=== PATIENT | female | born 2000 | race Caucasian/White ===

== ENCOUNTER 2023-03-18 15:47 | Emergency (ER) | payer BC, OTHER, SELFPAY ==
[2023-03-18 15:48] VITALS: BP 128/89; PULSE 74; RESP 16; TEMP 36.8; O2SAT 100; BMI 16.0
--- NOTE | 2023-03-18 16:02 | EDS_ITS ---
HPI HPI - Psych History of Present Illness Chief Complaint: Suicidal Detail of Chief Complaint: Suicidal thoughts Informant: patient Narrative Narrative: Patient presents with depression and thoughts of suicide. Patient was seen by primary care physician today and referred to the emergency department. Patient tells me that she has been depressed for the last month because of a break-up with significant other which was a relationship that lasted about 3 years. To me she denied currently feeling suicidal. Apparently she told her primary care physician that she has had thoughts of cutting or overdosing. To me she denied prior attempts to harm herself but PCP noted that she had prior attempt at hanging. Patient's grandmother was with her in the room when I interviewed the patient. She denies any illicit drug use but does use CBD to help her sleep at night. Patient tells me she is been compliant with her medications. Denies auditory or visual hallucinations. PFSH PFSH Medical History Anxiety Home Medications multivitamin 1 tab PO DAILY 05/17/20 [History Last Taken Unknown] lorazepam 0.5 mg tablet 0.5 mg PO DAILY PRN 07/25/21 [History Last Taken Unknown] desogestrel 0.15 mg-ethinyl estradiol 0.03 mg tablet (Apri) 1 tab PO QDAY #84 tabs 09/18/22 [Rx Last Taken Unknown] lamotrigine 25 mg tablet 25 mg PO DAILY 09/18/22 [History Last Taken Unknown] Allergy/AdvReac Type Severity Reaction Status Date / Time No Known Allergies Allergy Verified 09/18/22 15:44 Family History Grandmother Heart disease Social History current occupational status: employed current occupation: [employer] Smoking Status: Never smoker alcohol intake: never substance use type: does not use caffeine: Yes what type of physical activity do you participate in: none seatbelt use: always ROS ROS ED Review of Systems ROS Unobtainable: other Constitutional Constitutional ED: Reports lethargy; Denies chills, fever(s), sweats or weight loss Eyes Eyes: Denies blurry vision, change in vision or diplopia ENT ENT ED: Denies rhinorrhea or sore throat Cardiovascular Cardiovascular: Denies chest pain, orthopnea or racing heartbeat Respiratory/Chest Respiratory/Chest: Denies cough, dyspnea, dyspnea on exertion, orthopnea or sputum Gastrointestinal Gastrointestinal: Denies abdominal pain, diarrhea, nausea or vomiting Genitourinary Genitourinary ED: Denies dysuria, hematuria or urinary frequency Musculoskeletal Musculoskeletal: Denies arthralgias, back pain, myalgias or neck pain Integumentary Denies abscess, Abrasions or rash Neurologic Neurologic: Denies headache(s) or weakness Psychiatric Psychiatric: Reports anxiety, depression, suicidal ideation and suicidal thoughts Endocrine Endocrinology: Denies polydipsia, polyphagia or polyuria Hematologic/Lymphatic Hematologic/Lymphatic: Denies easy bleeding, easy bruising or lymphadenopathy Allergic/Immunologic Allergic/Immunologic ED: Denies mouth swelling, tongue swelling or urticaria EXAM Physical Exam Const Vital Signs: 03/18/23 15:48 03/18/23 17:00 03/18/23 18:00 Temperature 98.2 F Temperature Source Temporal Pulse Rate 74 Respiratory Rate 16 18 18 Blood Pressure 128/89 H Blood Pressure Mean 102 Pulse Ox 100 Oxygen Delivery Method Room Air 03/18/23 19:00 03/18/23 21:41 Temperature Temperature Source Pulse Rate Respiratory Rate 18 16 Blood Pressure Blood Pressure Mean Pulse Ox Oxygen Delivery Method Positive well nourished and well developed General Appearance ED: well developed and NAD HEENT Reports TM's clear and moist mucous membranes normocephalic and atraumatic; Negative for trauma or tenderness Tympanic Membrane ED: Yes TM's clear Eyes PERRL and EOMs intact bilaterally General Eye ED: Negative for pale conjunctiva or scleral icterus Neck no lymphadenopathy, supple and no JVD General: Negative for tenderness Chest Wall inspection of chest normal and palpation of chest normal Chest: Negative for tenderness Resp normal respiratory effort and clear to auscultation bilaterally Effort and Inspection: Negative for respiratory distress or pain with movement Auscultation: Negative for rhonchi, wheezes or diminished lung sounds Cardio regular rate, regular rhythm, S1 normal heart sound, S2 normal heart sound and no murmurs Peripheral Pulses: pulses 2+ throughout GI normal to inspection, nondistended, normoactive bowel sounds, soft to palpation, non-tender, non-distended and no masses Back/Spine no CVA tenderness and no thoracic nor lumbar tenderness Extremity normal to inspection General Extremety ED: Negative for edema General Extremity: Negative for edema Neuro oriented x3, CN's II-XII intact bilaterally, no sensory deficits noted and gait normal Sensorium / Orientation: awake, alert, oriented to person, oriented to place and oriented to time Motor Exam: strength 5/5 throughout and strength abnormal Psych mental status grossly normal Skin no rashes or lesions noted and no wounds MDM MDM MDM Narrative Medical decision making narrative: Patient presents from PCPs office to be evaluated by crisis. She is been depressed since ending a 3-year relationship 1 month ago. Patient was not forthcoming with me about plan to harm herself and prior attempts. Patient was seen by crisis and we believe she would benefit from inpatient hospitalization and stabilization as we feel she is a threat to herself. CBC with differential is normal. Chemistries unremarkable. Tox screen negative. hCG was negative. Patient will be transferred to psychiatric facility for definitive care. Lab Data Labs: Laboratory Results - last 24 hr 03/18/23 03/18/23 16:10 16:25 WBC 7.5 RBC 4.54 Hgb 14.4 Hct 43.5 MCV 95.8 MCH 31.7 MCHC 33.1 RDW Std Deviation 42.5 RDW Coeff of Otto 12.1 Plt Count 334 MPV 9.6 Immature Gran % (Auto) 0.300 Neut % (Auto) 54.2 Lymph % (Auto) 36.3 [place] % (Auto) 6.5 Eos % (Auto) 2.0 Baso % (Auto) 0.7 Absolute Neuts (auto) 4.1 Absolute Lymphs (auto) 2.72 Nucleated RBC % 0 Sodium 139 Potassium 4.0 Chloride 106 Carbon Dioxide 27.0 Anion Gap 6 BUN 14 Creatinine 0.94 Estim Creat Clear Calc 59.66 Est GFR (MDRD) Af Amer 96 Est GFR (MDRD) Non-Af 80 BUN/Creatinine Ratio 14.9 Glucose 98 Calcium 9.0 Serum , Qual NEGATIVE Urine Opiates Screen NEGATIVE Urine Methadone Screen NEGATIVE Ur Barbiturates Screen NEGATIVE Ur Phencyclidine Scrn NEGATIVE Ur Amphetamines Screen NEGATIVE MDMA (Ecstasy) Screen NEGATIVE U Benzodiazepines Scrn NEGATIVE Urine Cocaine Screen NEGATIVE U Cannabinoids Screen NEGATIVE Ur Drug Screen Comment Ethyl Alcohol < 3.0 Discharge Plan Triage Chief Complaint: Suicidal ED Provider: Doris Glover Dx/Rx/DC Orders Clinical Impression: Suicidal ideations, Depression Prescriptions: No Action multivitamin Tablet 1 tab PO DAILY lorazepam 0.5 mg tablet 0.5 mg PO DAILY PRN lamotrigine 25 mg tablet 25 mg PO DAILY Patient Comments: TAKE 1 TABLET BY MOUTH EVERY DAY desogestrel-ethinyl estradiol [Apri] 0.15-0.03 mg tablet 1 tab PO QDAY Qty: 84 4RF Primary Care Provider: Jacqueline Sagastume Referrals: Jacqueline Sagastume MD [Primary Care Provider] - Disposition Disposition: Psychiatric Hospital or Unit
[2023-03-18 16:51] LABS: Absolute Lymphocyte Count 2.72 X10^3/uL (0.83-4.51); Absolute Neutrophil Count 4.1 X10^3/uL (2.0-7.7); Basophil# 0.05 X10^3/uL; Basophil% 0.7 % (0-1); Eosinophil# 0.15 X10^3/uL; Hematocrit 43.5 % (37-47); Hemoglobin 14.4 g/dL (12.0-15.0); Lymphocyte # 2.72 X10^3/ul (0.83-4.51); Lymphocyte % 36.3 % (19-41); Mean Corp Hgb Conc 33.1 g/dL (32-36); Mean Corpuscular Hgb 31.7 pg (27.0-32.0); Mean Corpuscular Volume 95.8 fL (81-99); Mean Platelet Vol. 9.6 fl (6.2-12.0); Monocyte# 0.49 X10^3/uL; Monocyte% 6.5 % (0-10); NRBC Flagged by Analyzer 0 % (0-5); Neutrophil # 4.07 X10^3/uL (2.7-7.7); Neutrophil % 54.2 % (47-70); Platelet Count 334 K/mm3 (150-450); RBC Distribution Width CV 12.1 % (11.6-14.6); RBC Distribution Width SD 42.5 fl (35.1-43.9); Red Blood Count 4.54 M/mm3 (4.2-5.4); White Blood Count 7.5 K/mm3 (4.4-11.0)
[2023-03-18 16:53] LABS: Amphetamine Urine VISTA NEGATIVE (<1000 ng/mL); Barbiturate Urine VISTA NEGATIVE (< 200 ng/mL); Benzodiazepine Urine VISTA NEGATIVE (< 200 ng/mL); Cocaine Urine VISTA NEGATIVE (< 300 ng/mL); Ecstacy Urine VISTA NEGATIVE (< 500 ng/mL); Methadone Urine VISTA NEGATIVE (< 300 ng/mL); PCP Urine VISTA NEGATIVE (< 25 ng/mL); THC Urine VISTA NEGATIVE (< 50 ng/mL); Vista UDS pH Range 7
[2023-03-18 17:00] VITALS: RESP 18
[2023-03-18 17:03] LABS: Alcohol, Blood (Medical)-Serum < 3.0 mg/dL
[2023-03-18 17:06] LABS: Anion Gap 6 (5-15); BUN 14 mg/dL (7-18); BUN/Creat Ratio 14.9 RATIO (10-20); Chloride 106 mmol/L (98-107); Creatinine, Serum 0.94 mg/dL (0.55-1.02); EST Glomerular Filtration Rate 80 mL/min (>60); Est Glom Filt Rate - Afr Amer 96 mL/min (>60); Estimated Creatinine Clearance 59.66 ml/min; Glucose 98 mg/dL (74-106); Sodium Level 139 mmol/L (136-145)
[2023-03-18 17:13] LABS: Internal QC Validated? YES +Cl - CLEAR BKGD; Pregnancy, Serum, hCG Quali. NEGATIVE Negative
--- NOTE | 2023-03-18 17:27 | ED.RN ---
CHART FAXED TO CRISIS
[2023-03-18 18:00] VITALS: RESP 18
[2023-03-18 19:00] VITALS: RESP 18
[2023-03-18] MEDS: Acetaminophen 500 MG Tablet 1000 MG PO (21:39)
[2023-03-18 21:41] VITALS: RESP 16
[2023-03-18 23:59] VITALS: BP 98/73; PULSE 56; RESP 18; TEMP 36.6; O2SAT 100
== END 2023-03-19 03:47 ==
PROVIDERS: Emergency Provider Emergency Medicine; PCP Internal Medicine; Visit Provider Emergency Medicine
DX: R45.851 Suicidal ideations (principal); F32.A Depression, unspecified; F41.9 Anxiety disorder, unspecified
CPT/HCPCS: 36415; 80048; 80307; 82077; 84703; 85025; 99284

== ENCOUNTER 2023-04-04 06:20 | Emergency (ER) | payer BC, SELFPAY ==
[2023-04-04 06:21] VITALS: BP 111/71; PULSE 68; RESP 18; TEMP 36.7; O2SAT 100; BMI 17.6
--- NOTE | 2023-04-04 06:32 | EDS_ITS ---
HPI History of Present Illness Chief Complaint: Seizure Informant: patient Onset/Context/Timing Onset: Today Context: Sudden Onset Timing: Intermittent and Lasts (3 minutes) Location: Generalized Worsened by: Nothing Relieved by: Nothing Narrative Narrative: Patient present with seizure activity that occurred today while she was at work. Coworker states she had 3 separate seizures today at work. Coworker states they last approximately 3 minutes each. Coworker states she was able to stand after each seizure. Coworkers state they were generalized. Patient does not remember any of this. Patient denies biting her tongue. Patient denies any loss of control of her bowels or bladder. Patient has a history of anxiety and has had seizures in the past. Patient is on lamotrigine. [facility] Medical History Anxiety Bipolar 1 disorder Home Medications lorazepam 0.5 mg tablet 0.5 mg PO DAILY PRN anxiety 07/25/21 [History Last Taken Unknown] desogestrel 0.15 mg-ethinyl estradiol 0.03 mg tablet (Apri) 1 tab PO QDAY #84 tabs 09/18/22 [Rx Last Taken Unknown] lamotrigine 25 mg tablet 25 mg PO DAILY 09/18/22 [History Last Taken Unknown] sertraline 25 mg tablet (Zoloft) 25 mg PO DAILY 04/04/23 [History Last Taken Unknown] Allergy/AdvReac Type Severity Reaction Status Date / Time No Known Allergies Allergy Verified 04/04/23 06:25 Family History Grandmother Heart disease Social History current occupational status: employed current occupation: [employer] Smoking Status: Never smoker alcohol intake: never substance use type: does not use caffeine: Yes what type of physical activity do you participate in: none seatbelt use: always ROS ROS ED Constitutional Constitutional ED: Denies chills or fever(s) Eyes Eyes: Denies blurry vision or change in vision ENT ENT ED: Denies rhinorrhea or sore throat Cardiovascular Cardiovascular: Denies chest pain or palpitations Respiratory/Chest Respiratory/Chest: Denies cough or dyspnea Gastrointestinal Gastrointestinal: Denies nausea or vomiting Genitourinary Genitourinary ED: Denies dysuria or hematuria Musculoskeletal Musculoskeletal: Denies back pain or neck pain Integumentary Denies abscess or rash Neurologic Neurologic: Denies headache(s) or weakness Allergic/Immunologic Allergic/Immunologic ED: Denies mouth swelling or urticaria EXAM Physical Exam Const Vital Signs: 04/04/23 06:21 Temperature 98.0 F Temperature Source Temporal Pulse Rate 68 Respiratory Rate 18 Blood Pressure 111/71 Blood Pressure Mean 84 Pulse Ox 100 Oxygen Delivery Method Room Air Positive well nourished and well developed General Appearance ED: well developed and NAD HEENT Reports moist mucous membranes Neck supple and no JVD Resp normal respiratory effort and clear to auscultation bilaterally Cardio regular rate, regular rhythm and no murmurs GI normal to inspection, nondistended, normoactive bowel sounds and non-tender Palpation: soft Extremity normal to inspection General Extremety ED: Negative for edema or tenderness General Extremity: Negative for edema Neuro oriented x3, CN's II-XII intact bilaterally and no sensory deficits noted Sensorium / Orientation: alert Motor Exam: strength 5/5 throughout Psych mental status grossly normal Skin no rashes or lesions noted MDM MDM MDM Narrative Medical decision making narrative: Differential diagnosis includes seizure disorder, pseudoseizure, syncope, intracranial bleeding, mass, electrolyte abnormality, and cardiac dysrhythmia. EKG will be obtained to assess for cardiac dysrhythmia. CBC will be obtained to assess for leukocytosis and anemia. Basic metabolic profile will be obtained to assess for electrolyte abnormality and renal function. CT scan of the brain will be obtained to assess for intracranial bleeding or mass. Lab Data Attestation: I reviewed the patient's lab results. Lab results narrative: CBC was reviewed and was within normal limits. Basic metabolic profile was reviewed and was within normal limits. Serum hCG was reviewed and was negative. Labs: Laboratory Results - last 24 hr 04/04/23 04/04/23 06:30 07:05 WBC 8.2 RBC 4.45 Hgb 14.2 Hct 42.2 MCV 94.8 MCH 31.9 MCHC 33.6 RDW Std Deviation 42.6 RDW Coeff of Otto 12.2 Plt Count 316 MPV 9.4 Immature Gran % (Auto) 0.400 Neut % (Auto) 58.1 Lymph % (Auto) 31.3 [place] % (Auto) 6.9 Eos % (Auto) 2.7 Baso % (Auto) 0.6 Absolute Neuts (auto) 4.8 Absolute Lymphs (auto) 2.58 Nucleated RBC % 0 Sodium Cancelled 141 Potassium Cancelled 3.9 Chloride Cancelled 111 H Carbon Dioxide Cancelled 28.0 Anion Gap Cancelled 2 L BUN Cancelled 11 Creatinine Cancelled 0.78 Estim Creat Clear Calc Cancelled 78.89 Est GFR (MDRD) Af Amer Cancelled 120 Est GFR (MDRD) Non-Af Cancelled 99 BUN/Creatinine Ratio Cancelled 14.1 Glucose Cancelled 89 Calcium Cancelled 8.6 Serum , Qual NEGATIVE Radiography Diagnostic Testing: Clinical Impression(s) from Imaging Studies Brain CT 04/04/23 06:35 IMPRESSION: No acute abnormality. Electronically Signed: Waleska Stoddard MD at 7:05 EDT , CT scan of the brain was obtained. There is no acute intracranial abnormality. This was interpreted by the radiologist and was also independently reviewed by myself. EKG Initial EKG: Attestation: I personally reviewed and interpreted this EKG as follows: Interpretation: Sinus Rhythm (72) and No Acute Injury Pattern Comments: EKG was obtained. On my independent interpretation, it showed a normal sinus rhythm with a rate of 72. [place] interval, QRS interval, and QTc intervals were all normal. [place] was normal. There are no acute ST or T wave changes. Prior EKG tracings: not available for review Prior: No Prior Treatment and Re-Evaluation :: Seizure precautions were maintained. Patient had no further seizures here. Patient was advised of her findings. Patient was advised that we could not do a lamotrigine level. Patient was instructed to follow-up with her primary care physician and neurologist as scheduled. Patient was instructed return if worse in any way. Patient was given a note for work today. Patient understood and was agreeable with the plan. All questions were answered. Discharge Plan Triage Chief Complaint: Seizure ED Provider: Diaz Rivero Dx/Rx/DC Orders Clinical Impression: Seizure Instructions: ED Seizure, Recurrent (Adult) Prescriptions: No Action lorazepam 0.5 mg tablet 0.5 mg PO DAILY PRN (Reason: anxiety) lamotrigine 25 mg tablet 25 mg PO DAILY Patient Comments: TAKE 1 TABLET BY MOUTH EVERY DAY desogestrel-ethinyl estradiol [Apri] 0.15-0.03 mg tablet 1 tab PO QDAY Qty: 84 4RF sertraline [Zoloft] 25 mg tablet 25 mg PO DAILY Primary Care Provider: Jacqueline Sagastume Referrals: Jacqueline Sagastume MD [Primary Care Provider] - [facility] appointment Disposition Disposition: Home, Self Care
--- NOTE | 2023-04-04 06:35 | CT_ITS ---
INDICATION: Seizure EXAMINATION: CT BRAIN - CT Head or Brain W/O Contrast Injection TECHNIQUE: Multiple axial images were obtained of the head without intravenous contrast. A radiation dose optimization technique was used for this scan. IV Contrast dosage and agent: None. RADIATION DOSAGE (If Supplied By Facility): CTDIvol = ( 44.99 ) mGy, DLP = ( 711.75 ) mGycm COMPARISON: None. FINDINGS: BRAIN: No acute bleed. No edema. Kaplan-white matter differentiation is maintained. VENTRICLES AND SULCI: Not dilated. EXTRA-AXIAL: No hemorrhage, fluid collection, or mass. CALVARIUM / SKULL BASE: Unremarkable. FACE/SINUSES: Unremarkable. SOFT TISSUES: Unremarkable. CT/Brain/Head without Contrast IMPRESSION: No acute abnormality. Electronically Signed: Waleska Stoddard MD at 7:05 EDT ,
--- NOTE | 2023-04-04 06:36 | EKG12_ITS ---
Test Reason : SEIZERS Blood Pressure : / mmHG Vent. Rate : 072 BPM Atrial Rate : 072 BPM P-R Int : 130 ms QRS Dur : 082 ms QT Int : 392 ms P-R-T Axes : 056 075 041 degrees QTc Int : 429 ms Sinus rhythm with marked sinus arrhythmia Otherwise normal ECG Confirmed by DAVID YBARRA ([id number]), scientific editor VIJAY ZACARIAS ([id number]) on 04/18/2023 10:47:36 AM Referred By: Confirmed By:DAVID YBARRA
[2023-04-04] MEDS: 0.9% Normal Saline 1,000 ML 1000 ML IV (06:43)
--- NOTE | 2023-04-04 06:43 | NURSING ---
NO OLD EKGS
[2023-04-04 06:48] LABS: Absolute Lymphocyte Count 2.58 X10^3/uL (0.83-4.51); Absolute Neutrophil Count 4.8 X10^3/uL (2.0-7.7); Basophil# 0.05 X10^3/uL; Basophil% 0.6 % (0-1); Eosinophil# 0.22 X10^3/uL; Eosinophils% 2.7 % (0-5); Hematocrit 42.2 % (37-47); Hemoglobin 14.2 g/dL (12.0-15.0); Lymphocyte # 2.58 X10^3/ul (0.83-4.51); Lymphocyte % 31.3 % (19-41); Mean Corp Hgb Conc 33.6 g/dL (32-36); Mean Corpuscular Hgb 31.9 pg (27.0-32.0); Mean Corpuscular Volume 94.8 fL (81-99); Mean Platelet Vol. 9.4 fl (6.2-12.0); Monocyte# 0.57 X10^3/uL; Monocyte% 6.9 % (0-10); NRBC Flagged by Analyzer 0 % (0-5); Neutrophil # 4.79 X10^3/uL (2.7-7.7); Neutrophil % 58.1 % (47-70); Platelet Count 316 K/mm3 (150-450); RBC Distribution Width CV 12.2 % (11.6-14.6); RBC Distribution Width SD 42.6 fl (35.1-43.9); Red Blood Count 4.45 M/mm3 (4.2-5.4); White Blood Count 8.2 K/mm3 (4.4-11.0)
--- NOTE | 2023-04-04 07:00 | NURSING ---
[place] HEMOLIZED
[2023-04-04 07:14] LABS: Internal QC Validated? YES +Cl - CLEAR BKGD; Pregnancy, Serum, hCG Quali. NEGATIVE Negative
[2023-04-04 07:24] LABS: Anion Gap 2 (5-15); BUN 11 mg/dL (7-18); BUN/Creat Ratio 14.1 RATIO (10-20); Calcium,Total 8.6 mg/dL (8.5-10.1); Chloride 111 mmol/L (98-107); Creatinine, Serum 0.78 mg/dL (0.55-1.02); EST Glomerular Filtration Rate 99 mL/min (>60); Est Glom Filt Rate - Afr Amer 120 mL/min (>60); Estimated Creatinine Clearance 78.89 ml/min; Glucose 89 mg/dL (74-106); Potassium 3.9 mmol/L (3.5-5.1); Sodium Level 141 mmol/L (136-145)
[2023-04-04 07:45] VITALS: BP 100/68; PULSE 85; RESP 14; O2SAT 100
== END 2023-04-04 07:51 | disposition home or self-care (01) ==
PROVIDERS: Emergency Provider Emergency Medicine; PCP Internal Medicine; Visit Provider Emergency Medicine
DX: R56.9 Unspecified convulsions (principal); F31.9 Bipolar disorder, unspecified; F41.9 Anxiety disorder, unspecified; Z79.899 Other long term (current) drug therapy
CPT/HCPCS: 70450; 80048; 84703; 85025; 93005; 96360; 99285; J7030; A4216

== ENCOUNTER → 2023-10-23 | Outpatient (CLI) | payer BC, OTHER, SELFPAY ==
[2023-10-23 11:37] LABS: Absolute Lymphocyte Count 2.82 X10^3/uL (0.83-4.51); Absolute Neutrophil Count 3.5 X10^3/uL (2.0-7.7); Basophil# 0.04 X10^3/uL; Basophil% 0.6 % (0-1); Eosinophil# 0.16 X10^3/uL; Eosinophils% 2.3 % (0-5); Hematocrit 42.9 % (37-47); Hemoglobin 14.3 g/dL (12.0-15.0); Lymphocyte # 2.82 X10^3/ul (0.83-4.51); Lymphocyte % 39.9 % (19-41); Mean Corp Hgb Conc 33.3 g/dL (32-36); Mean Corpuscular Volume 92.9 fL (81-99); Mean Platelet Vol. 9.9 fl (6.2-12.0); Monocyte# 0.52 X10^3/uL; Monocyte% 7.4 % (0-10); NRBC Flagged by Analyzer 0 % (0-5); Neutrophil # 3.52 X10^3/uL (2.7-7.7); Neutrophil % 49.7 % (47-70); Platelet Count 317 K/mm3 (150-450); RBC Distribution Width CV 12.2 % (11.6-14.6); RBC Distribution Width SD 41.8 fl (35.1-43.9); Red Blood Count 4.62 M/mm3 (4.2-5.4); White Blood Count 7.1 K/mm3 (4.4-11.0)
[2023-10-23 12:15] LABS: Vitamin D,25 Hydroxy 14.4 ng/mL
[2023-10-23 12:31] LABS: AST(SGOT) 16 U/L (15-37); Alanine Aminotransfer ALT/SGPT 14 U/L (13-56); Albumin, Serum 4.3 g/dL (3.2-5.0); Alkaline Phosphatase 66 U/L (45-117); Bilirubin, Direct 0.18 mg/dL (0.00-0.30); Free T3 3.1 pg/mL (2.18-3.98); Globulin 3.1 g/dL (2.2-4.2); Protein, Total 7.4 g/dL (6.4-8.2); T4 Free Direct 0.93 ng/dL (0.76-1.46); Thyroid Stim Hormone (TSH) 1.02 uIU/mL (0.358-3.74)
== END | disposition home or self-care (01) ==
PROVIDERS: PCP Nurse Practitioner; Referring Provider Nurse Practitioner Psychiatric/Mental Health; Visit Provider Nurse Practitioner Psychiatric/Mental Health
DX: Z00.00 Encounter for general adult medical examination without abnormal findings (principal); E55.9 Vitamin D deficiency, unspecified
CPT/HCPCS: 36415; 80076; 82306; 84439; 84443; 84481; 85025

== ENCOUNTER 2024-05-15 13:47 | Emergency (ER) | payer BC, OTHER, SELFPAY ==
[2024-05-15 13:50] VITALS: BP 121/88; PULSE 81; RESP 16; TEMP 36.8; O2SAT 100
--- NOTE | 2024-05-15 14:58 | EX.ED.DYSGE1 ---
HPI History of Present Illness Chief Complaint: Anxiety Detail of Chief Complaint: Near syncope Informant: patient Narrative Narrative: Patient presents to the emergency department with complaint of a near syncopal episode. Patient states that she was at work was there standing talking to somebody when she started feeling like her heart was racing and she felt very hot. She states she got numb and tingly all over and went to find her boss. Next thing she knew they were lowering her to the floor. It is unclear if she passed out or not. Grandmother states that she works at the same place and came over to check on her and she was tense and had her eyes closed. Patient had similar episodes in the past she had a similar episode 3 days ago but did not last very long. Still feels a little jittery. She does have history of anxiety and takes Zoloft. Currently she is feeling improved. She denies recent illness. She denies chest pain or shortness of breath. [facility] Medical History Anxiety Bipolar 1 disorder Home Medications ?Medication ?Instructions ?Recorded ?Last Taken ?Type lorazepam 0.5 mg tablet 0.5 mg PO DAILY PRN anxiety 07/25/21 Unknown History desogestrel 0.15 mg-ethinyl 1 tab PO QDAY #84 tabs 09/18/22 Unknown Rx estradiol 0.03 mg tablet (Apri) lamotrigine 25 mg tablet 25 mg PO DAILY 09/18/22 Unknown History sertraline 25 mg tablet (Zoloft) 25 mg PO DAILY 04/04/23 Unknown History Allergy/AdvReac Type Severity Reaction Status Date / Time No Known Allergies Allergy Verified 05/15/24 13:52 Family History Grandmother Heart disease Social History current occupational status: employed current occupation: [employer] Smoking Status: Never smoker alcohol intake: never substance use type: does not use caffeine: Yes what type of physical activity do you participate in: none seatbelt use: always ROS ROS ED Review of Systems ROS Unobtainable: other Constitutional Constitutional ED: Reports lethargy; Denies chills, fever(s), sweats or weight loss Eyes Eyes: Denies blurry vision, change in vision or diplopia ENT ENT ED: Denies rhinorrhea or sore throat Cardiovascular Cardiovascular: Reports racing heartbeat; Denies chest pain or orthopnea Respiratory/Chest Respiratory/Chest: Denies cough, dyspnea, dyspnea on exertion, orthopnea or sputum Gastrointestinal Gastrointestinal: Denies abdominal pain, diarrhea, nausea or vomiting Genitourinary Genitourinary ED: Denies dysuria, hematuria or urinary frequency Musculoskeletal Musculoskeletal: Denies arthralgias, back pain, myalgias or neck pain Integumentary Denies abscess, Abrasions or rash Neurologic Neurologic: Denies headache(s) or weakness Psychiatric Psychiatric: Denies anxiety, depression or suicidal thoughts Endocrine Endocrinology: Denies polydipsia, polyphagia or polyuria Hematologic/Lymphatic Hematologic/Lymphatic: Denies easy bleeding, easy bruising or lymphadenopathy Allergic/Immunologic Allergic/Immunologic ED: Denies mouth swelling, tongue swelling or urticaria EXAM Physical Exam Const Vital Signs: 05/15/24 13:50 Temperature 98.2 F Temperature Source Temporal Pulse Rate 81 Respiratory Rate 16 Blood Pressure 121/88 H Blood Pressure Mean 99 Pulse Ox 100 Oxygen Delivery Method Room Air Positive well nourished and well developed General Appearance ED: well developed and NAD HEENT Reports TM's clear and moist mucous membranes normocephalic and atraumatic; Negative for trauma or tenderness Tympanic Membrane ED: Yes TM's clear Eyes PERRL and EOMs intact bilaterally General Eye ED: Negative for pale conjunctiva or scleral icterus Neck no lymphadenopathy, supple and no JVD General: Negative for tenderness Chest Wall inspection of chest normal and palpation of chest normal Chest: Negative for tenderness Resp normal respiratory effort and clear to auscultation bilaterally Effort and Inspection: Negative for respiratory distress or pain with movement Auscultation: Negative for rhonchi, wheezes or diminished lung sounds Cardio regular rate, regular rhythm, S1 normal heart sound, S2 normal heart sound and no murmurs Peripheral Pulses: pulses 2+ throughout GI normal to inspection, nondistended, normoactive bowel sounds, soft to palpation, non-tender, non-distended and no masses Back/Spine no CVA tenderness and no thoracic nor lumbar tenderness Extremity normal to inspection General Extremety ED: Negative for edema General Extremity: Negative for edema Neuro oriented x3, CN's II-XII intact bilaterally, no sensory deficits noted and gait normal Sensorium / Orientation: awake, alert, oriented to person, oriented to place and oriented to time Motor Exam: strength 5/5 throughout and strength abnormal Psych mental status grossly normal Skin no rashes or lesions noted and no wounds MDM MDM MDM Narrative Medical decision making narrative: Patient presents with episode of racing heart and lightheadedness and nausea and then possible near syncope. She has had multiple episodes like this in the past. This is the second 1 this week. She denies chest pain. She tells me that her watch showed a heart rate in the 140s at the time. Patient also tells me that years ago she wore a Holter monitor for 48 hours and no abnormality was found. IV line established. EKG obtained on arrival showed a sinus rhythm with ventricular rate of 68 bpm with PACs. CBC with differential count of 13.8 with hemoglobin 13.4 and platelet count of 304. Chemistries unremarkable. hCG was negative. Patient was given a milligram of Ativan in the emergency department. On repeat examination she is feeling well. This point etiology of her symptoms unclear. Suspect possibly vasovagal episode versus anxiety attack as she did complain of numbness and tingling in her fingers as well and she has known history of anxiety. Will give referral to cardiology for follow-up as she described tachycardia with rate in the 140s though suspect this could have been a sinus tachycardia. Lab Data Attestation: I reviewed the patient's lab results. Labs: Laboratory Results - last 24 hr 05/15/24 15:13 WBC 13.8 H RBC 4.36 Hgb 13.4 Hct 40.9 MCV 93.8 MCH 30.7 MCHC 32.8 RDW Std Deviation 41.4 RDW Coeff of Otto 11.9 Plt Count 304 MPV 9.8 Immature Gran % (Auto) 0.400 Neut % (Auto) 70.9 H Lymph % (Auto) 20.9 [place] % (Auto) 6.2 Eos % (Auto) 1.2 Baso % (Auto) 0.4 Absolute Neuts (auto) 9.8 H Absolute Lymphs (auto) 2.88 Nucleated RBC % 0 Sodium 141 Potassium 3.6 Chloride 110 H Carbon Dioxide 27.0 Anion Gap 4 L BUN 14 Creatinine 1.03 H Est GFR (MDRD) Af Amer 86 Est GFR (MDRD) Non-Af 71 BUN/Creatinine Ratio 13.6 Glucose 92 Calcium 9.7 Serum , Qual NEGATIVE EKG Initial EKG: Attestation: I personally reviewed and interpreted this EKG as follows: Comments: Sinus rhythm with rate of 68 bpm with occasional PACs Discharge Plan Triage Chief Complaint: Anxiety ED Provider: Doris Glover Dx/Rx/DC Orders Clinical Impression: Anxiety, Near syncope, Dizziness Instructions: ED Anxiety Reaction, ED Dizziness, Uncertain Cause, ED Fainting, Vagal Reaction Prescriptions: No Action lorazepam 0.5 mg tablet 0.5 mg PO DAILY PRN (Reason: anxiety) lamotrigine 25 mg tablet 25 mg PO DAILY Patient Comments: TAKE 1 TABLET BY MOUTH EVERY DAY desogestrel-ethinyl estradiol [Apri] 0.15-0.03 mg tablet 1 tab PO QDAY Qty: 84 4RF sertraline [Zoloft] 25 mg tablet 25 mg PO DAILY Primary Care Provider: Care Physician,No Primary Referrals: Tricia Wilkes MD [Med Staff - Active Staff] - 3-5 Days Care Physician,No Primary [Primary Care Provider] - Print Language: Indonesian Disposition Disposition: Home, Self Care
[2024-05-15 15:29] LABS: Absolute Lymphocyte Count 2.88 X10^3/uL (0.83-4.51); Absolute Neutrophil Count 9.8 X10^3/uL (2.0-7.7); Basophil# 0.06 X10^3/uL; Basophil% 0.4 % (0-1); Eosinophil# 0.16 X10^3/uL; Eosinophils% 1.2 % (0-5); Hematocrit 40.9 % (37-47); Hemoglobin 13.4 g/dL (12.0-15.0); Lymphocyte # 2.88 X10^3/ul (0.83-4.51); Lymphocyte % 20.9 % (19-41); Mean Corp Hgb Conc 32.8 g/dL (32-36); Mean Corpuscular Hgb 30.7 pg (27.0-32.0); Mean Corpuscular Volume 93.8 fL (81-99); Mean Platelet Vol. 9.8 fl (6.2-12.0); Monocyte# 0.85 X10^3/uL; Monocyte% 6.2 % (0-10); NRBC Flagged by Analyzer 0 % (0-5); Neutrophil # 9.78 X10^3/uL (2.7-7.7); Neutrophil % 70.9 % (47-70); Platelet Count 304 K/mm3 (150-450); RBC Distribution Width CV 11.9 % (11.6-14.6); RBC Distribution Width SD 41.4 fl (35.1-43.9); Red Blood Count 4.36 M/mm3 (4.2-5.4); White Blood Count 13.8 K/mm3 (4.4-11.0)
[2024-05-15 15:46] LABS: Anion Gap 4 (5-15); BUN 14 mg/dL (7-18); BUN/Creat Ratio 13.6 RATIO (10-20); Calcium,Total 9.7 mg/dL (8.5-10.1); Chloride 110 mmol/L (98-107); Creatinine, Serum 1.03 mg/dL (0.55-1.02); EST Glomerular Filtration Rate 71 mL/min (>60); Est Glom Filt Rate - Afr Amer 86 mL/min (>60); Glucose 92 mg/dL (74-106); Potassium 3.6 mmol/L (3.5-5.1); Sodium Level 141 mmol/L (136-145)
[2024-05-15] MEDS: LORazepam 2 MG/ML Syringe 1 MG IV (15:52)
[2024-05-15 16:12] LABS: Internal QC Validated? YES +Cl - CLEAR BKGD; Pregnancy, Serum, hCG Quali. NEGATIVE Negative
== END 2024-05-15 17:05 | disposition home or self-care (01) ==
PROVIDERS: Emergency Provider Emergency Medicine; Visit Provider Emergency Medicine
DX: F41.9 Anxiety disorder, unspecified (principal); F31.9 Bipolar disorder, unspecified; R55 Syncope and collapse; R11.0 Nausea; Z79.899 Other long term (current) drug therapy
CPT/HCPCS: 80048; 84703; 85025; 93005; 96374; 99283; A4216

== ENCOUNTER 2024-07-15 08:41 | Emergency (ER) | payer BC, OTHER, SELFPAY ==
[2024-07-15 08:42] VITALS: BP 210/199; PULSE 58; RESP 16; TEMP 36.9; O2SAT 100
--- NOTE | 2024-07-15 08:55 | EDS_ITS ---
HPI History of Present Illness Chief Complaint: Syncope Narrative Narrative: Chief complaint and HPI: Syncope. 23-year-old female with past medical history of anxiety presents for evaluation of syncope. History taken by patient as well as medical record. Per patient and mother patient has had recurrent syncopal episodes since she was in her teenage years. She had a follow-up with neurology years ago and had negative EGD. Mother states that her daughter has continued to have syncope. On chart review, patient had a syncopal episode and was seen in our emergency room on 05/15/2024. Patient was ultimately discharged with referral to cardiology. Patient states that she has a cardiology appointment scheduled in August. She states that she has not followed up with the PCP for this and currently does not have one. She is not on any of her antianxiety medication. Patient states that her syncopal episodes are all very similar. She states that she gets the same prodrome of symptoms and sits down so she does not fall. Today patient was working when she felt warm, vision darkening, and palpitations. She states she sat down and had a reported unresponsive episode by coworkers. Mother states the patient occasionally stiffens or shakes her arms. She has not had loss of bowel or bladder. Has not bit her tongue. No postictal phase. Patient is very tearful and anxious in the room. She last ate yesterday evening. She denies any fever, chills, shortness of breath, chest pain abdominal pain, nausea, vomiting, dysuria. Denies possibility of although she is sexually active and not on control her last menstrual cycle was last week. Review of systems: See HPI Medications: As listed on the chart Allergies: As listed on the chart PFSH: Per chart Vital signs: As listed on the chart. Reviewed. Physical exam: Gen: A&O x3, anxious and shaking from nerves, tearful Head: Normocephalic, atraumatic Eyes: No sclera icterus, conjunctiva clear, PERRL, EOMI ENT: Moist mucous membranes Neck: Trachea midline, No JVD CV: RRR, no murmurs, no peripheral edema Resp: Lungs CTA BL, no w/r/c GI: Abd soft, non-distended, non-tender, no r/r/g Musc: Full ROM, no deformity Skin: Warm, dry Neuro: Alert, oriented, grossly intact, sensation intact Psych: Cooperative, tearful and anxious [facility] Medical History (Updated 07/15/24 @ 11:[address] Jamal Kohler, DO) Near syncope Panic attacks Vitamin B12 deficiency Vitamin D deficiency Renal tubular acidosis Dysphonetic dyslexia Bipolar 1 disorder Anxiety Home Medications ?Medication ?Instructions ?Recorded ?Last Taken ?Type lorazepam 0.5 mg tablet 0.5 mg PO DAILY PRN anxiety 07/25/21 Unknown History desogestrel 0.15 mg-ethinyl 1 tab PO QDAY #84 tabs 09/18/22 Unknown Rx estradiol 0.03 mg tablet (Apri) lamotrigine 25 mg tablet 25 mg PO DAILY 09/18/22 Unknown History sertraline 25 mg tablet (Zoloft) 25 mg PO DAILY 04/04/23 Unknown History ergocalciferol (vitamin D2) 1,250 1,250 mcg PO QWEEK 07/09/24 Unknown History mcg (50,000 unit) capsule cephalexin 500 mg capsule 500 mg PO BID 5 days #10 caps 07/15/24 Unknown Rx Allergy/AdvReac Type Severity Reaction Status Date / Time No Known Allergies Allergy Verified 05/15/24 13:52 Family History (Updated 07/09/24 @ 08:27 by Carin Schilling RN) Grandmother Heart disease Hypertension Vascular dementia Father Asthma Aunt Thyroid disorder Surgical History (Updated 07/09/24 @ 08:26 by Carin Schilling RN) No history of previous surgery Social History current occupational status: employed current occupation: [employer] Smoking Status: Never smoker alcohol intake: never substance use type: does not use caffeine: Yes what type of physical activity do you participate in: none seatbelt use: always EXAM Physical Exam Const Vital Signs: 07/15/24 08:42 07/15/24 09:43 07/15/24 10:54 Temperature 98.4 F Temperature Source Temporal Pulse Rate 58 L Respiratory Rate 16 Respiratory Effort Normal Non-Labored Respiratory Pattern Normal Blood Pressure 210/199 H 101/68 Blood Pressure Mean 202 79 Pulse Ox 100 100 Oxygen Delivery Method Room Air Room Air 07/15/24 12:33 07/15/24 12:58 Temperature 97.9 F Temperature Source Pulse Rate 72 63 Respiratory Rate 16 18 Respiratory Effort Respiratory Pattern Blood Pressure 100/77 109/67 Blood Pressure Mean 84 81 Pulse Ox 100 99 Oxygen Delivery Method Room Air MDM MDM MDM Narrative Medical decision making narrative: 23-year-old female with past medical history of anxiety presents for evaluation of syncope. Differential diagnosis includes but is not limited to panic attack, vasovagal episode, electrolyte abnormality, anemia, arrhythmia, . Low suspicion for PE, intracranial abnormality, seizure. Patient states that her syncopal episodes have been more recurrent over the past several months. Has not followed up for these. On chart review, patient did have a CT head in 2022. Given that patient endorses increase in syncope will get CT head and syncope workup. Patient was offered antianxiety medication but declined. NS bolus ordered. Syncope workup ordered. EKG and chest x-ray reviewed. CBC without leukocytosis or anemia. D-dimer unremarkable. BMP unremarkable. Lactic acid unremarkable. UA to expect this to be elevated if patient had a seizure. Troponin unremarkable. UA positive for UTI. Urine culture sent. Patient will be prescribed Keflex for home. Urine drug screen negative. CT head without any acute intracranial pathology. On reexamination, patient has ambulated to the bathroom without any difficulty. No syncope. Currently asymptomatic. At this point in time no clear etiology for patient's syncope. Will place patient on a 48-hour Holter monitor. She already has follow-up with cardiology in a week. Patient was told to keep this appointment. Return precautions explained. F ollow-up with PCP. They confirmed understand the plan. Patient stable to discharge home. EKG: Interpreted by me/EM physician: EKG shows normal sinus rhythm with periodic sinus arrhythmia. Heart rate 60. This is similar to her previous EKG on 05/18 Diagnostic: Interpreted by me/EM physician: Chest x-ray without pneumonia, effusion, cardiomegaly, pneumothorax Impression: 1. Recurrent syncope 2. UTI Lab Data Labs: Laboratory Results - last 24 hr 07/15/24 07/15/24 09:25 09:29 WBC 5.8 RBC 4.32 Hgb 13.1 Hct 40.3 MCV 93.3 MCH 30.3 MCHC 32.5 RDW Std Deviation 40.3 RDW Coeff of Otto 11.7 Plt Count 290 MPV 9.6 Immature Gran % (Auto) 0.200 Neut % (Auto) 48.7 Lymph % (Auto) 41.8 H Pierce % (Auto) 6.0 Eos % (Auto) 2.6 Baso % (Auto) 0.7 Absolute Neuts (auto) 2.8 Absolute Lymphs (auto) 2.43 Nucleated RBC % 0 D-Dimer Quant (PE/DVT) 0.27 Sodium 141 Potassium 4.0 Chloride 110 H Carbon Dioxide 26.0 Anion Gap 4 L BUN 10 Creatinine 0.72 Est GFR (MDRD) Af Amer 130 Est GFR (MDRD) Non-Af 108 BUN/Creatinine Ratio 13.9 Glucose 100 Lactic Acid 1.7 Calcium 9.5 Troponin I High Sens 4 Urine Color Yellow Urine Clarity Sl. Cloudy Urine pH 5.0 Ur Specific [place] 1.020 Urine Protein 15 H Urine Glucose (UA) Normal Urine Ketones Negative Urine Occult Blood Negative Urine Nitrite Negative Urine Bilirubin Negative Urine Urobilinogen Normal Ur Leukocyte Esterase 500 H Urine RBC 0 SEEN Urine WBC 10-25 SEEN Ur Squamous Epith Cells 5-10 SEEN Urine Bacteria 4+ Urine Mucus 0 SEEN Urine Test Negative Urine Opiates Screen NEGATIVE Urine Methadone Screen NEGATIVE Ur Barbiturates Screen NEGATIVE Ur Phencyclidine Scrn NEGATIVE Ur Amphetamines Screen NEGATIVE MDMA (Ecstasy) Screen NEGATIVE U Benzodiazepines Scrn NEGATIVE Urine Cocaine Screen NEGATIVE U Cannabinoids Screen NEGATIVE Ur Drug Screen Comment Radiography Diagnostic Testing: Clinical Impression(s) from Imaging Studies Chest X-Ray 07/15/24 09:50 IMPRESSION: Normal x-ray examination of the chest. Electronically Signed: Cuauhtemoc Reyes MD at 10:04 EST , Brain CT 07/15/24 10:10 IMPRESSION: Normal unenhanced CT scan of the brain. Electronically Signed: Cuauhtemoc Reyes MD at 10:22 EST , Discharge Plan Triage Chief Complaint: Syncope ED Provider: Jamal Kohler Dx/Rx/DC Orders Clinical Impression: Syncope, UTI (urinary tract infection) Instructions: Urinary Tract Infections in Women, ED Fainting, Uncertain Cause Prescriptions: New cephalexin 500 mg capsule 500 mg PO BID 5 Days Qty: 10 0RF No Action lorazepam 0.5 mg tablet 0.5 mg PO DAILY PRN (Reason: anxiety) lamotrigine 25 mg tablet 25 mg PO DAILY Patient Comments: TAKE 1 TABLET BY MOUTH EVERY DAY desogestrel-ethinyl estradiol [Apri] 0.15-0.03 mg tablet 1 tab PO QDAY Qty: 84 4RF ergocalciferol (vitamin D2) 1,250 mcg (50,000 unit) capsule 1,250 mcg PO QWEEK sertraline [Zoloft] 25 mg tablet 25 mg PO DAILY Stand Alone Forms: Work Status Form Primary Care Provider: Care Physician,No Primary Referrals: Cachorro Archuleta MD [Med Staff - Active Staff] - 3-5 Days Rolly Galo MD [Med Staff - Active Staff] - 3-5 Days Care Physician,No Primary [Primary Care Provider] - Activity Restrictions/Additional Instructions: Follow-up with primary care physician listed above. Keep your cardiology appointment. Return back to the ED if symptoms change or worsen. Wear your Holter monitor at all times. Print Language: Urdu Disposition Disposition: Home, Self Care Discharge Date/Time: 07/15/24 13:00
--- NOTE | 2024-07-15 08:58 | EKG12_ITS ---
Test Reason : SYNCOPE Blood Pressure : */* mmHG Vent. Rate : 60 BPM Atrial Rate : 60 BPM P-R Int : 116 ms QRS Dur : 72 ms QT Int : 406 ms P-R-T Axes : 32 74 47 degrees QTcB Int : 406 ms Normal sinus rhythm with sinus arrhythmia Normal ECG Confirmed by JOHANNA LAMB, TOBIN ([id number]), research editor TONY AMES ([id number]) on 07/22/2024 1:44:25 P M Referred By: Jamal Kohler Confirmed By: TOBIN SPENCER MD
[2024-07-15 09:33] LABS: Absolute Lymphocyte Count 2.43 X10^3/uL (0.83-4.51); Absolute Neutrophil Count 2.8 X10^3/uL (2.0-7.7); Basophil# 0.04 X10^3/uL; Basophil% 0.7 % (0-1); Eosinophil# 0.15 X10^3/uL; Eosinophils% 2.6 % (0-5); Hematocrit 40.3 % (37-47); Hemoglobin 13.1 g/dL (12.0-15.0); Lymphocyte # 2.43 X10^3/ul (0.83-4.51); Lymphocyte % 41.8 % (19-41); Mean Corp Hgb Conc 32.5 g/dL (32-36); Mean Corpuscular Hgb 30.3 pg (27.0-32.0); Mean Corpuscular Volume 93.3 fL (81-99); Mean Platelet Vol. 9.6 fl (6.2-12.0); Monocyte# 0.35 X10^3/uL; NRBC Flagged by Analyzer 0 % (0-5); Neutrophil # 2.84 X10^3/uL (2.7-7.7); Neutrophil % 48.7 % (47-70); Platelet Count 290 K/mm3 (150-450); RBC Distribution Width CV 11.7 % (11.6-14.6); RBC Distribution Width SD 40.3 fl (35.1-43.9); Red Blood Count 4.32 M/mm3 (4.2-5.4); White Blood Count 5.8 K/mm3 (4.4-11.0)
[2024-07-15 09:36] LABS: Mucous, Urine 0 SEEN /hpf (<or=2+); Red Blood Cells-Urine 0 SEEN /hpf (0-5)
[2024-07-15 09:44] LABS: Color, Urine Yellow (Yellow); Glucose, Dipstick Normal (Normal); Ketone-Dipstick Negative (Negative); Leukocyte Esterase-Dipstick 500 /ul (Negative); Nitrite-Dipstick Negative (Negative); Occult Blood-Urine Negative /ul (Negative); Protein-Dipstick 15 mg/dl (Negative); Urine Bilirubin Dipstick Negative (Negative); Urine Clarity Sl. Cloudy (Clear); Urine Urobilinogen Normal (Normal)
[2024-07-15 09:50] LABS: Internal QC Validated? YES +Cl - CLEAR BKGD; Pregnancy, Urine Negative Negative; Record Kit Lot#,Urine Preg 872158
--- NOTE | 2024-07-15 09:50 | RAD_ITS ---
STUDY: X-RAY CHEST REASON FOR EXAM: Female, 23 years old. Syncope TECHNIQUE: Single AP portable view of the chest. COMPARISON: None. FINDINGS: The lungs are clear and expanded. There is no demonstrated pleural abnormality. Normal size heart. Normal mediastinum and donna. Normal visualized pulmonary arteries. Normal visualized aortic arch and descending thoracic aorta. Normal visualized thoracic spine. Normal visualized ribs, clavicles, and shoulders. There is no demonstrated abnormality of the visualized soft tissue structures of the upper abdomen. RAD/Chest 1 View (Portable) IMPRESSION: Normal x-ray examination of the chest. Electronically Signed: Cuauhtemoc Reyes MD at 10:04 [facility] ,
[2024-07-15 09:53] LABS: Squamous Epithelial Cells - UA 5-10 SEEN /hpf (5-10); White Blood Cells 10-25 SEEN /hpf (0-5)
[2024-07-15 09:54] LABS: Bacteria 4+ /hpf (None Seen)
[2024-07-15 10:07] LABS: D-Dimer Quantitative (DVT/PE) 0.27 FEU/ug/m (0.27-0.49)
--- NOTE | 2024-07-15 10:10 | CT_ITS ---
STUDY: CT BRAIN WITHOUT CONTRAST REASON FOR EXAM: Female, 23 years old. Recurrent syncope RADIATION DOSAGE (If Supplied By Facility): CTDIvol = ( 44.99 ) mGy, DLP = ( 745.49 ) mGycm TECHNIQUE: Transaxial CT imaging of the brain was performed without administration of intravenous contrast material. Individualized dose optimization techniques were used for this CT. COMPARISON: Comparison is made with prior study dated April 04, 2023. FINDINGS: Normal soft tissue structures. Normal calvarium. Normal size ventricles and extra-axial spaces for the patient''s age. Normal white matter tracts of the cerebral hemispheres. Normal basal ganglia and thalami. Normal brainstem. Normal cerebellum. There is no intracranial hemorrhage. There are no findings of an acute ischemic infarction. Normal visualized paranasal sinuses. CT/Brain/Head without Contrast IMPRESSION: Normal unenhanced CT scan of the brain. Electronically Signed: Cuauhtemoc Reyes MD at 10:22 EST ,
[2024-07-15 10:11] LABS: Anion Gap 4 (5-15); BUN 10 mg/dL (7-18); BUN/Creat Ratio 13.9 RATIO (10-20); Calcium,Total 9.5 mg/dL (8.5-10.1); Chloride 110 mmol/L (98-107); Creatinine, Serum 0.72 mg/dL (0.55-1.02); EST Glomerular Filtration Rate 108 mL/min (>60); Est Glom Filt Rate - Afr Amer 130 mL/min (>60); Glucose 100 mg/dL (74-106); Sodium Level 141 mmol/L (136-145); Troponin-I HS 4 pg/mL (3.0-54.0)
[2024-07-15 10:20] LABS: Lactic Acid 1.7 mmol/L (0.4-1.9)
[2024-07-15 10:54] VITALS: BP 101/68; O2SAT 100
[2024-07-15 11:27] LABS: Amphetamine Urine VISTA NEGATIVE (<1000 ng/mL); Barbiturate Urine VISTA NEGATIVE (< 200 ng/mL); Benzodiazepine Urine VISTA NEGATIVE (< 200 ng/mL); Cocaine Urine VISTA NEGATIVE (< 300 ng/mL); Ecstacy Urine VISTA NEGATIVE (< 500 ng/mL); Methadone Urine VISTA NEGATIVE (< 300 ng/mL); PCP Urine VISTA NEGATIVE (< 25 ng/mL); THC Urine VISTA NEGATIVE (< 50 ng/mL); Vista UDS pH Range 4
[2024-07-15 12:33] VITALS: BP 100/77; PULSE 72; RESP 16; O2SAT 100
[2024-07-15 12:58] VITALS: BP 109/67; PULSE 63; RESP 18; TEMP 36.6; O2SAT 99
== END 2024-07-15 13:00 | disposition home or self-care (01) ==
PROVIDERS: Emergency Provider Surgery; Referring Provider Surgery; Visit Provider Surgery
DX: R55 Syncope and collapse (principal); N39.0 Urinary tract infection, site not specified; F41.9 Anxiety disorder, unspecified
CPT/HCPCS: 70450; 71045; 80048; 80307; 81001; 81025; 83605; 84484; 85025; 85379; 87086; 93005; 93225; 93226; 99284; A4216

== ENCOUNTER → 2024-07-15 | Outpatient (CLI) | payer BC, OTHER, SELFPAY | END | disposition home or self-care (01) | LOC: CVS 11:54 | PROVIDERS: Referring Provider Surgery; Visit Provider Surgery | DX: Z00.00 Encounter for general adult medical examination without abnormal findings (principal) ==

== ENCOUNTER → 2024-08-21 | Outpatient (CLI) | payer BC, OTHER, SELFPAY ==
[2024-08-21 17:38] LABS: Absolute Lymphocyte Count 2.88 X10^3/uL (0.83-4.51); Absolute Neutrophil Count 5.6 X10^3/uL (2.0-7.7); Basophil# 0.06 X10^3/uL; Basophil% 0.7 % (0-1); Eosinophil# 0.12 X10^3/uL; Eosinophils% 1.3 % (0-5); Hematocrit 39.9 % (37-47); Hemoglobin 13.4 g/dL (12.0-15.0); Lymphocyte # 2.88 X10^3/ul (0.83-4.51); Lymphocyte % 31.2 % (19-41); Mean Corp Hgb Conc 33.6 g/dL (32-36); Mean Corpuscular Hgb 30.9 pg (27.0-32.0); Mean Corpuscular Volume 91.9 fL (81-99); Mean Platelet Vol. 10.1 fl (6.2-12.0); Monocyte# 0.57 X10^3/uL; Monocyte% 6.2 % (0-10); NRBC Flagged by Analyzer 0 % (0-5); Neutrophil # 5.58 X10^3/uL (2.7-7.7); Neutrophil % 60.4 % (47-70); Platelet Count 338 K/mm3 (150-450); RBC Distribution Width CV 11.9 % (11.6-14.6); RBC Distribution Width SD 40.1 fl (35.1-43.9); Red Blood Count 4.34 M/mm3 (4.2-5.4); White Blood Count 9.2 K/mm3 (4.4-11.0)
[2024-08-21 17:54] LABS: Vitamin D,25 Hydroxy 27.6 ng/mL
[2024-08-21 18:07] LABS: ALB/GLOB Ratio 1.4 RATIO (0.9-2.4); AST(SGOT) 9 U/L (15-37); Alanine Aminotransfer ALT/SGPT 16 U/L (13-56); Albumin, Serum 4.3 g/dL (3.2-5.0); Alkaline Phosphatase 58 U/L (45-117); Anion Gap 6 (5-15); BUN 12 mg/dL (7-18); BUN/Creat Ratio 16.6 RATIO (10-20); Calcium,Total 9.5 mg/dL (8.5-10.1); Chloride 108 mmol/L (98-107); Cholesterol 175 mg/dL (200); Creatinine, Serum 0.72 mg/dL (0.55-1.02); EST Glomerular Filtration Rate 107 mL/min (>60); Est Glom Filt Rate - Afr Amer 129 mL/min (>60); Globulin 3.1 g/dL (2.2-4.2); Glucose 99 mg/dL (74-106); High Density Lipoprotein 80 mg/dL; Potassium 3.7 mmol/L (3.5-5.1); Protein, Total 7.4 g/dL (6.4-8.2); Sodium Level 137 mmol/L (136-145); Triglycerides 62 mg/dL; Very Low Density Lipoprotein 12 mg/dL (5-40)
== END | disposition home or self-care (01) ==
LOC: BFHLAB 16:20
PROVIDERS: PCP Nurse Practitioner Family; Visit Provider Nurse Practitioner Family
DX: Z00.01 Encounter for general adult medical examination with abnormal findings (principal); E55.9 Vitamin D deficiency, unspecified
CPT/HCPCS: 36415; 80053; 80061; 82306; 85025

== ENCOUNTER → 2024-08-24 | Outpatient (CLI) | payer BC, OTHER, SELFPAY ==
--- NOTE | 2024-08-24 07:49 | ECHOD_ITS ---
Reason For Study: Syncope Procedure This was a 2D Doppler, Color Flow transthoracic echocardiogram. Exam performed in department. Left Ventricle Normal LV size. Left ventricular systolic function is normal. The left ventricular ejection fraction is 60 %. No regional wall motion abnormalities noted. Right Ventricle Normal RV size. Normal systolic function. Atria Normal left atrium. Normal right atrium. Mitral Valve Normal mitral valve. Tricuspid Valve Normal tricuspid valve. Aortic Valve Normal aortic valve. Trisinus/trileaflet aortic valve. Pulmonic Valve Normal pulmonic valve. Great Vessels Normal aortic root. The pulmonary artery is normal size. Inferior vena cava collapse with respiration. Pericardium/Pleural No pericardial effusion. MMode/2D Measurements & Calculations LVIDd: 4.2 cm IVSd: 0.73 cm Ao root diam: 3.0 cm LVIDs: 3.0 cm LVPWd: 0.63 cm RVDd: 2.6 cm FS: 29.6 % LAV(MOD-bp): 21.9 ml LVAd ap4: 21.5 cm2 SV(MOD-sp4): 36.5 ml LAV(MOD-bp) Indexed: 16.6 ml/m2 LVLd ap4: 6.3 cm SI(MOD-sp4): 27.8 ml/m2 LAV(MOD-sp2): 22.5 ml EDV(MOD-sp4): 60.0 ml LAV(MOD-sp4): 20.5 ml EDV(sp4-el): 62.4 ml LVAs ap4: 11.9 cm2 LVLs ap4: 4.9 cm ESV(MOD-sp4): 23.5 ml ESV(sp4-el): 24.5 ml EF(MOD-sp4): 60.8 % EF(sp4-el): 60.8 % SV(sp4-el): 37.9 ml LA A4 area: 10.0 cm2 LA dimension(2D): 2.5 cm RA A4 area: 7.5 cm2 TAPSE: 1.7 cm Time Measurements MV dec time: 0.17 sec Doppler Measurements & Calculations MV E max juan: 81.0 cm/sec Lat Peak E' Juan: 20.4 cm/sec Med Peak E' Juan: 13.6 cm/sec MV A max juan: 69.5 cm/sec E/E' lat: 4.0 E/E' med: 5.9 MV E/A: 1.2 MV V2 max: 90.2 cm/sec MV P1/2t max juan: 90.2 cm/sec Ao V2 max: 92.3 cm/sec MV max P.3 mmHg MV P1/2t: 53.5 msec Ao max P.4 mmHg MV V2 mean: 57.5 cm/sec Ao V2 mean: 69.4 cm/sec MV mean P.5 mmHg MV dec slope: 493.9 cm/sec2 Ao mean P.1 mmHg MV V2 VTI: 15.4 cm MVA(P1/2t): 4.1 cm2 Ao V2 VTI: 19.1 cm AV (velocity ratio): 0.82 LV V1 max: 76.3 cm/sec PA V2 max: 80.5 cm/sec LV V1 max P.3 mmHg LV V1 mean P.4 mmHg LV V1 mean: 56.0 cm/sec LV V1 VTI: 15.7 cm ECHO/Echo Complete Interpretation Summary Normal LV size. Left ventricular systolic function is normal. The left ventricular ejection fraction is 60 %. Structurally normal valves. Ordering Physician: Cachorro Archuleta Referring Physician: Cachorro Archuleta Performed By: Jamal Robledo RCS
== END | disposition home or self-care (01) ==
LOC: CVS 07:49
PROVIDERS: PCP Nurse Practitioner Family; Referring Provider Internal Medicine Cardiovascular Disease; Visit Provider Internal Medicine Cardiovascular Disease
DX: R55 Syncope and collapse (principal)
CPT/HCPCS: 93306

== ENCOUNTER → 2024-09-01 | Outpatient (CLI) | payer BC, OTHER, SELFPAY ==
[2024-09-01 09:23] LABS: Internal QC Validated? YES +Cl - CLEAR BKGD; Pregnancy, Serum, hCG Quali. NEGATIVE Negative
--- NOTE | 2024-09-02 08:10 | PCM.TILTTABL ---
Staff Staff: Trang Fowler and Jany Howe Summary Pre Test Resting HR: 78 Pre Test Resting BP: 115/73 Minimum Test HR: 63 Maximum Test HR: 164 Minimum Test BP: 103/74 Maximum Test BP: 126/90 Reason for Test Termination: Reached Maximum Test Time Physician Tilt Table Report Patient's Physicians Primary Care Physician: Trang Jordan Indications/Diagnosis: Recurrent syncope Procedure Comments: The patient was brought to the cardiac catheterization noninvasive lab in the postabsorptive and sedated state. Informed consent was obtained. EKG was also obtained. The patient was then put in the 70 degree head upright tilt position. Continuous EKG monitoring was performed. The patient maintained sinus rhythm and sinus tachycardia. The heart rate was 108 on standing initially and after approximately 20 minutes he went up to 240 251 patient complained of cloudy vision she was tearful and appeared panicked. Blood pressure remained stable with a heart rate slowly came down to 117 bpm with a blood pressure 120/79. The patient was then put back in the recumbent position and the test ended. Summary: Nondiagnostic head upright tilt table with no definitive features of POTS or vagally mediated syncope
[2024-09-02 08:14] VITALS: BP 103/74; BP 115/73; BP 126/90
== END | disposition home or self-care (01) ==
PROVIDERS: PCP Nurse Practitioner Family; Referring Provider Internal Medicine Cardiovascular Disease; Visit Provider Internal Medicine Cardiovascular Disease
DX: R55 Syncope and collapse (principal)
CPT/HCPCS: 36415; 84703; 93660; A4216

== ENCOUNTER → 2024-11-05 | Outpatient (CLI) | payer BC, OTHER, SELFPAY | END | disposition home or self-care (01) | PROVIDERS: PCP Nurse Practitioner Family; Referring Provider Physician Assistant Medical; Visit Provider Physician Assistant Medical | DX: R00.2 Palpitations (principal); R55 Syncope and collapse | CPT/HCPCS: 36415; 82088; 82384; 84244 ==

== ENCOUNTER 2024-11-06 10:11 | Emergency (ER) | payer BC, OTHER, SELFPAY ==
[2024-11-06 10:12] VITALS: BP 109/81; PULSE 76; RESP 14; TEMP 36.1; O2SAT 100; BMI 17.9
--- NOTE | 2024-11-06 10:21 | EKG12_ITS ---
Test Reason : PALPS Blood Pressure : */* mmHG Vent. Rate : 60 BPM Atrial Rate : 60 BPM P-R Int : 112 ms QRS Dur : 72 ms QT Int : 418 ms P-R-T Axes : 27 69 29 degrees QTcB Int : 418 ms Normal sinus rhythm with sinus arrhythmia Normal ECG Confirmed by JOHANNA LAMB, TOBIN ([id number]), photographic editor TONY AMES ([id number]) on 11/09/2024 5:52:06 AM Referred By: INGRIS Confirmed By: TOBIN SPENCER MD
--- NOTE | 2024-11-06 10:43 | EDS_ITS ---
HPI History of Present Illness Chief Complaint: Palpitations Informant: patient and family Narrative Narrative: Here with grandmother worsening palpitations lasting 45 minutes this morning. Headache afterwards. Lightheaded symptoms with this. On and off symptoms for past 3 to 4 months has seen cardiology upstairs. Has had echocardiogram to 3- day Holter monitors however states during the monitoring there is no symptoms. 2 episodes 2 days ago again today. Has seen cardiology yesterday and has plan for 14-day Holter monitor. Denies any caffeine use alcohol use or any recreational drugs. No recent vomiting or diarrhea. Additional hormone blood work was sent out yesterday. Prior similar symptoms: Yes PFSH PFSH Medical History Palpitations Near syncope Panic attacks Vitamin B12 deficiency Vitamin D deficiency Renal tubular acidosis Dysphonetic dyslexia Bipolar 1 disorder Anxiety Home Medications ?Medication ?Instructions ?Recorded ?Last Taken ?Type cholecalciferol (vitamin D3) 125 125 mcg PO QDAY 11/05 Unknown History mcg (5,000 unit) capsule Allergy/AdvReac Type Severity Reaction Status Date / Time No Known Allergies Allergy Verified 11/06/24 10:12 Family History Grandmother Heart disease Hypertension Vascular dementia Father Asthma Aunt Thyroid disorder Surgical History No history of previous surgery Social History current occupational status: employed current occupation: [employer] Smoking Status: Never smoker alcohol intake: never substance use type: does not use caffeine: Yes what type of physical activity do you participate in: none seatbelt use: always ROS ROS ED Constitutional Constitutional ED: Denies chills, fever(s) or sweats ENT ENT ED: Denies sore throat Cardiovascular Cardiovascular: Reports palpitations and racing heartbeat; Denies chest pain or leg edema Respiratory/Chest Respiratory/Chest: Denies cough, dyspnea or dyspnea on exertion Gastrointestinal Gastrointestinal: Denies abdominal pain, diarrhea, nausea or vomiting Genitourinary Genitourinary ED: Denies dysuria, hematuria or urinary frequency Musculoskeletal Musculoskeletal: Denies back pain, extremity pain or neck pain Integumentary Denies rash or wounds Neurologic Neurologic: Reports headache(s); Denies paresthesias or weakness EXAM Physical Exam Const Vital Signs: 11/06/24 10:12 Temperature 96.9 F L Temperature Source Temporal Pulse Rate 76 Respiratory Rate 14 Blood Pressure 109/81 H Blood Pressure Mean 90 Pulse Ox 100 Oxygen Delivery Method Room Air Positive well nourished and well developed General Appearance ED: well developed and NAD HEENT Reports moist mucous membranes normocephalic and atraumatic Eyes General Eye ED: Yes normal appearance of both eyes Neck full ROM Neck Narrative: No meningismus Chest Wall Chest: Negative for tenderness Resp normal respiratory effort and normal air movement Effort and Inspection: symmetric chest movement; Negative for respiratory distress Cardio regular rate, regular rhythm and no murmurs Peripheral Pulses: pulses 2+ throughout GI normal to inspection, nondistended, normoactive bowel sounds and non-tender Palpation: Negative for guarding or rebound tenderness present Extremity normal to inspection General Extremety ED: Negative for edema or tenderness General Extremity: Negative for edema Neuro oriented x3, CN's II-XII intact bilaterally and no sensory deficits noted Sensorium / Orientation: awake and alert Skin no rashes or lesions noted and no wounds MDM MDM MDM Narrative Medical decision making narrative: Interventions / MDM: Differential diagnosis: Palpitations, headache Diagnosis considered but do not suspect: No clinical meningitis My EKG interpretation: Sinus rate of 60, no ST or T wave changes. QTc 418. Imaging independently reviewed and interpreted by myself: N/A External documents reviewed: N/A Test considered but not ordered:N/A ED course: EKG normal rhythm asymptomatic vital stable. Patient has an Apple Watch she had trouble setting up with EKGs. I assisted in the room with this and is working. She has a pending 14-day Holter monitor with cardiology. She does not do caffeine. She had workup with labs and thyroid hormones a month ago. Records has pending results for additional hormones of renin aldosterone norepinephrine dopamine and epinephrine. Should continue to monitor symptoms do not feel blood work is necessary at this time. She has Tylenol and ibuprofen at home for headache symptoms. Return precautions. All questions were answered. Re-evaluation: stable Disposition discussed with patient/family/significant other: Patient and grandmother Case discussed with consulting clinician: N/A This note was generated with [employer] software. It may contain incorrect words, spelling, and punctuation that were not noted in checking the note before signing. Discharge Plan Triage Chief Complaint: Palpitations ED Provider: Bhaskar Nassar Dx/Rx/DC Orders Clinical Impression: Palpitations, Headache Instructions: ED Palpitations Prescriptions: No Action cholecalciferol (vitamin D3) 125 mcg (5,000 unit) capsule 125 mcg PO QDAY Stand Alone Forms: ED Work / School Excuse Primary Care Provider: Trang Jordan Referrals: Trang Jordan, [employer] [Primary Care Provider] - Jade Singh PA [Med Staff - [facility]] - 3-5 Days Activity Restrictions/Additional Instructions: EKG normal. Plan for your 14-day Holter monitor with cardiology. Continue to avoid caffeine products. Monitor symptoms. Print Language: Sinhala Disposition Disposition: Home, Self Care
[2024-11-06 10:49] VITALS: BP 103/73; PULSE 63; RESP 18; TEMP 36.1; O2SAT 99
== END 2024-11-06 10:52 | disposition home or self-care (01) ==
PROVIDERS: Emergency Provider Emergency Medicine; PCP Nurse Practitioner Family; Visit Provider Emergency Medicine
DX: R00.2 Palpitations (principal); R51.9 Headache, unspecified
CPT/HCPCS: 93005; 99282

== ENCOUNTER → 2025-05-14 | Outpatient (CLI) | payer BC, OTHER, SELFPAY ==
[2025-05-14 12:32] LABS: Hematocrit 38.5 % (37-47); Hemoglobin 13.0 g/dL (12.0-15.0); Immature Granulocytes Count 0.090 X10^3/uL (0.0-0.0); Mean Corp Hgb Conc 33.8 g/dL (32-36); Mean Corpuscular Volume 93.2 fL (81-99); Mean Platelet Vol. 9.8 fl (6.2-12.0); NRBC Flagged by Analyzer 0 % (0-5); Platelet Count 367 K/mm3 (150-450); RBC Distribution Width CV 12.8 % (11.6-14.6); RBC Distribution Width SD 44.1 fl (35.1-43.9); Red Blood Count 4.13 M/mm3 (4.2-5.4); White Blood Count 12.3 K/mm3 (4.4-11.0)
[2025-05-14 13:40] LABS: Ferritin 80 ng/mL (22-378); HIV Nonreactive (Nonreactive); Hepatitis B Surface Antigen Nonreactive (Nonreactive); Hepatitis C Antibody Nonreactive (Nonreactive); Iron 101 ug/dL (50-170); Iron Binding Capacity,Total 374 ug/dL (250-450); Iron Binding Capacity,Unsat 273 ug/dL (228-428); Syphilis Antibodies Nonreactive (Nonreactive)
[2025-05-17 18:08] LABS: Chlamydia By Nucleic Acid AMP Positive (Negative); Gonococcus By Nucleic Acid AMP Negative (Negative)
[2025-05-18 18:08] LABS: Vitamin B1, Thiamine 156.7 nmol/L (66.5-200.0)
== END | disposition home or self-care (01) ==
PROVIDERS: Advanced Practice Midwife; PCP Nurse Practitioner Family; Visit Provider Obstetrics & Gynecology
DX: O09.90 Supervision of high risk pregnancy, unspecified, unspecified trimester (principal); Z12.4 Encounter for screening for malignant neoplasm of cervix; Z3A.00 Weeks of gestation of pregnancy not specified
CPT/HCPCS: 36415; 82728; 83540; 83550; 84425; 85025; 86703; 86762; 86780; 86803; 86850; 86900; 86901; 87086; 87088; 87340; 87491; 87591; 88175; G0145

== ENCOUNTER → 2025-06-11 | Outpatient (CLI) | payer BC, OTHER, SELFPAY ==
[2025-06-14 05:07] LABS: Chlamydia By Nucleic Acid AMP Negative (Negative); Gonococcus By Nucleic Acid AMP Negative (Negative)
== END | disposition home or self-care (01) ==
LOC: BWCLAB 08:35
PROVIDERS: PCP Nurse Practitioner Family; Visit Provider Obstetrics & Gynecology
DX: Z34.02 Encounter for supervision of normal first pregnancy, second trimester (principal)
CPT/HCPCS: 87491; 87591